=== PATIENT | female | born 1930 | race Caucasian/White ===

== ENCOUNTER 2018-02-07 10:04 | Observation (INO) ==
--- NOTE | 2018-02-07 10:17 | Emergency Department Note ---
ED Disposition Clinical Impression: Delirium, UTI (urinary tract infection), Delirium due to general medical condition, Dementia, Bacteriuria with pyuria, Weakness, UTI (urinary tract infection) with pyuria Disposition: Admitted as Observation Condition on Discharge: Good Referrals: Austin Rivera MD [Primary Care Provider] - - Critical Care Critical Care Time: No Attestation: On 02/07/18, the high probability of a clinically significant, sudden or life threatening deterioration of the following system(s) required my full and direct attention, intervention and personal management. The time I documented below is in addition to time spent performing reported procedures but includes the following listed in this critical care notation. Medical Decision Making - Medical Records Medical records reviewed: Yes: I reviewed the patient's medical records. - Rikki Inquiry Pt receiving controlled substance: No Vital Signs: 02/07/18 09:56 Pulse Rate [Right Brachial] 101 H Respiratory Rate 18 Blood Pressure [Right Arm] 147/89 Blood Pressure Mean [Right Arm] 108 Blood Pressure Source [Right Arm] Automatic Cuff 02 Sat by Pulse Oximetry 96 Oxygen Delivery Method Room Air - Lab Data Lab results reviewed: Yes: I reviewed the patient's lab results. Lab Results 02/07/18 10:20: WBC 15.9 H D, RBC 3.92 L, Hgb 11.6 L, Hct 37.7, MCV 96.1, MCH 29.6, MCHC 30.8 L, RDW 13.9, Plt Count 347, MPV 7.5, Neut % (Auto) 78.8, Lymph % (Auto) 15.9, Dawes % (Auto) 4.7, Eos % (Auto) 0.2, Baso % (Auto) 0.4, Neut # ( Auto) 12.5 H, Lymph # (Auto) 2.5, Dawes # (Auto) 0.7, Eos # (Auto) 0.0, Baso # ( Auto) 0.1, Total Counted 100, Neutrophils % (Manual) 76, Lymphocytes % (Manual) 11, Monocytes % (Manual) 12 H, Basophils % (Manual) 1.0, Platelet Estimate Normal, RBC Morphology Normal 02/07/18 10:20: Sodium 139, Potassium 3.9, Chloride 106, Carbon Dioxide 22, Anion Gap 14.9, BUN 22 H, Creatinine 1.38 H, Estimated Creat Clear 29, Estimated GFR 36 L, Est GFR ( Amer) 44 L, Glucose 136 H D, Calcium 9.9, Total Bilirubin 0.3, AST 14 L D, ALT 15, Alkaline Phosphatase 129 H, Total Creatine Kinase 19 L, CK-MB (CK-2) < 0.5, CK-MB (CK-2) Rel Index 2.6, Troponin I < 0.02, Total Protein 7.7, Albumin 3.2 L, Globulin 4.5 H, Albumin/Globulin Ratio 0.7 L 02/07/18 10:20: Lactic Acid 0.3 L 02/07/18 10:20: Urine Color Dark yellow, Urine Appearance Turbid, Urine pH 6.0, Ur Specific [place] 1.020, Urine Protein 3+, Urine Glucose (UA) Negative, Urine Ketones Negative, Urine Blood 3+, Urine Nitrate Positive, Urine Bilirubin Negative, Urine Urobilinogen 0.2, Ur Leukocyte Esterase 2+ A, Urine RBC 10-20, Urine WBC Tntc A, Ur Squamous Epith Cells Occasional, Urine Bacteria Trace Result diagrams: 02/07/18 10:20 02/07/18 10:20 Orders (Tests/Meds): ED MEDICATIONS Generic Name Dose Route Start Last Admin Trade Name Freq PRN Reason Stop Dose Admin Ceftriaxone Sodium 1 gm/ 50 mls @ 100 mls/hr 02/07/18 10:30 02/07/18 11:10 Sodium Chloride IV 02/21/18 10:29 100 mls/hr Q24H GISELA Administration Protocol Discontinued Medications Generic Name Dose Route Start Last Admin Trade Name Freq PRN Reason Stop Dose Admin Acetaminophen 650 mg 02/07/18 10:15 02/07/18 11:00 Acetaminophen 650mg Suppository RC 02/07/18 10:16 650 mg ONCE ONE Administration ORDERS Category Date Time Status Blood Culture Stat Micro 02/07/18 10:20 Received Urine Culture(cathed specimen) Routine Micro 02/07/18 10:20 Received - Radiology Data #1 Image(s): Chest Image Reviewed: Yes I discussed the image results w/the radiologist Preliminary Findings: Normal/NAD (prior CM, prior h hernia; neg pneumonia; neg acute per Dr. Bennett ) - CT Data CT Scan: Head Time Received: 11:[address] Reviewed: Yes: I discussed the CT results w/the radiologist Preliminary Findings: Abnormal Findings Narrative: states compared to yesterday CT now has some fluid in the R mastoid, questions possible mastoiditis; neg acute bleed; chronic atrophy; CXR neg acute per radiology - Physician Consults Physician Consulted: Dr. Gaming applications support lead for Dr. Rivera Time: 11:25 Reason -: Admission Comment/Response: Admit on Rocephin per d/w Dr. Gaming - Reevaluation(s) Time: 11:46 (Pt taking PO fluids, looks better hydrated, temperature has defervesced to 99.6 rectally, no acute neurological changes noted. ) Weakness HPI - General Chief complaint: Altered Mental Status Stated complaint: ams Time Seen by Provider: 02/07/18 10:12 Mode of Arrival: EMS Source of Information: EMS, Medical Record Limitations: Physical Limitations Description of Symptoms (Recalled from ER Triage Doc. by RN): presents with "worsening of symptoms" according to family from previous visit yesterday - History of Present Illness HPI Narrative: EMS brings in patient from home stating that she was in the ER yesterday and was diagnosed with UTI, and the personal care provider stated she seemed a little worse. Stated patient bedridden but can usually turn in the bed and seemed less active. Patient baseline contracted, not very mobile, has dementia. Family not yet at the bedside to provide further details. Unknown if antibiotic Rx filled yesterday for UTI as prescribed. - Related Data Home Medications Medication Instructions Recorded Confirmed Dorzolamide HCl [Trusopt] 10 ml OP BID 11/19/17 02/07/18 Escitalopram Oxalate [Lexapro] 5 mg PO DAILY 11/19/17 02/07/18 Ferrous Sulfate [Ferrous Sulfate 325 mg PO DAILY 11/19/17 02/07/18 325mg Tablet] Fluticasone Propionate [Flonase 1 spr NS BID 11/19/17 02/07/18 50mcg nasal spray 16gm] Furosemide [Furosemide 20mg Tab] 20 mg PO QODHS 11/19/17 02/07/18 Losartan/Hydrochlorothiazide 1 each PO DAILY 11/19/17 02/07/18 [Hyzaar 100-12.5 Tablet] Lovastatin 40 mg PO DAILY 11/19/17 02/07/18 Nitrofurantoin Monohyd/M-Cryst 100 mg PO DAILY 11/19/17 02/07/18 [Macrobid 100 mg Capsule] Omeprazole [Omeprazole 40mg 40 mg PO DAILY 11/19/17 02/07/18 Capsule] Pnv with Ca,No.72/Iron/FA [Preplus 1 each PO DAILY 11/19/17 02/07/18 Ca-Fe 27 mg-FA 1 mg Tb] Potassium Chloride [K-Tab ER 10 10 meq PO DAILY 11/19/17 02/07/18 mEq] Rivaroxaban [Xarelto 15mg tablet] 15 mg PO DAILY 11/19/17 02/07/18 Previous Rx's Medication Instructions Recorded Nitrofurantoin Monohyd/M-Cryst 100 mg PO BID 10 Days #20 cap 02/06/18 [Macrobid 100 mg Capsule] Allergies Allergy/AdvReac Type Severity Reaction Status Date / Time loratadine [From CLARITIN] Allergy Mild Verified 11/19/17 14:08 solifenacin [From VESICARE] Allergy Mild Verified 11/19/17 14:08 REDD INHIBITORS Allergy Mild Uncoded 10/21/17 14:27 [facility] History Medical History: Reports:: Deep Vein Thrombosis, Hypertension Denies:: Cancer, Diabetes Mellitus Type 1, Diabetes Mellitus Type 2, MRSA Other Medical History: Reports: Arthritis Laterality Cases: Left: Mastectomy Other Surgeries: Yes: Appendectomy, Cancer Surgery, Colonoscopy, Hysterectomy- Partial, Tubal Ligation, Other (Left Mastectomy, Adrenal gland bx, bladder bx, cystoscopy) Amputation: No Fractures: No - Social History Educational Level: Completed High School Smoking Status: Never smoker Alcohol Intake: never Occupational Status: retired Housing: house Household Members: spouse - Psychiatric History Expresses thoughts of harming self/others: None Suicide Plan Description: No Plan Family Hx:: No significant family history ROS Obtained: Yes All systems reviewed & no additional complaints Physical Exam - General General appearance: alert, in no apparent distress - Head Head exam: atraumatic, normocephalic, normal inspection - Eye Eye exam: Present: normal appearance, PERRL, EOMI - ENT ENT exam: Present: mucous membranes dry - Neck Neck exam: Present: normal inspection, full ROM, trachea midline. Absent: meningismus, lymphadenopathy - Chest Chest inspection: Present: normal inspection, symmetric chest wall rise. Absent : tenderness - Respiratory Respiratory exam: Present: normal lung sounds bilaterally. Absent: respiratory distress - Cardiovascular Cardiovascular exam: Present: regular rate, normal rhythm. Absent: JVD - Abdominal Exam Abdominal exam: Present: soft, normal bowel sounds. Absent: distention, tenderness, guarding - Back Exam Back exam: Present: full ROM - Neurological Exam Neurological exam: Present: alert, CN II-XII intact. 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 No drooling, no facial drooping. ) - Skin Skin exam: Present: warm, dry, intact, normal color, other (appears dehydrated today) - Lymphatic Lymphatic Findings: no adenopathy
[2018-02-07 10:44] LABS: Basophils # 0.1 K/mm3 (0-0.2); Basophils % 0.4 % (0.1-2.0); Eosinophils % 0.2 % (0.1-12.0); Hematocrit 37.7 % (37.0-47.0); Hemoglobin 11.6 g/dL (12.2-16.2); Lymphocytes # 2.5 K/mm3 (0.7-4.5); Lymphocytes % 15.9 K/mm3 (10-50); Mean Corpuscular HGB Conc 30.8 g/dL (31.8-35.4); Mean Corpuscular Hemoglobin 29.6 pg (27.0-31.2); Mean Corpuscular Volume 96.1 fl (81-99); Mean Platelet Volume 7.5 fl (7.4-10.4); Monocytes # 0.7 K/mm3 (0.1-1.0); Monocytes % 4.7 % (1.7-9.3); Neutrophils # 12.5 K/mm3 (1.8-7.8); Neutrophils % 78.8 % (37.0-80.0); Platelet Count 347 K/mm3 (142-424); Red Blood Count 3.92 M/mm3 (4.20-5.40); Red Cell Distribution Width 13.9 % (11.5-17.5); White Blood Count 15.9 K/mm3 (4.8-10.8)
[2018-02-07 11:15] LABS: Alanine Aminotransferase 15 U/L (12-78); Albumin Level 3.2 gm/dL (3.4-5.0); Albumin/Globulin Ratio 0.7 (1.1-1.8); Alkaline Phosphatase 129 U/L (46-116); Anion Gap 14.9 mEq/L (5-15); Aspartate Amino Transferase 14 U/L (15-37); Bilirubin,Total 0.3 mg/dL (0.2-1.0); Blood Urea Nitrogen 22 mg/dL (7-18); Calcium 9.9 mg/dL (8.5-10.1); Carbon Dioxide 22 mmol/L (21.0-32.0); Chloride 106 mmol/L (98-107); Creatine Kinase 19 U/L (26-192); Globulin 4.5 gm/dl (1.3-3.2); Glucose 136 mg/dL (74-106); Potassium 3.9 mmoL/L (3.5-5.1); Sodium 139 mmol/L (136-145); Total Protein,Serum 7.7 gm/dL (6.4-8.2)
[2018-02-07 11:29] LABS: Lymphocytes % 11 % (10-50); Monocytes % 12 % (2-9); Neutrophils % 76 % (42-76); RBC Morphology Normal; Total Cells Counted 100
--- NOTE | 2018-02-07 16:57 | History & Physical Report ---
*Admission Date: 02/07/18 *Chief complaint: Altered mental status, UTI *History of present illness: This 87-year-old white female is admitted with altered mental status and evidence of urinary tract infection. She was actually seen yesterday in the emergency room with concerns of left-sided weakness. She was discharged from the emergency room on Macrobid but she takes Macrobid chronically anyway. She returned to the emergency room today with decreased responsiveness and fever. Her urine is turbid with 3+ bacteria and positive nitrites. She is admitted for treatment of this. An additional concern is some evidence of possible air- fluid level in the right mastoid area. She has had no obvious ENT symptoms. She is subject to the urinary tract infections and episodic dehydration related to infection. She is quite debilitated at her best though she has been up and about recently. [facility] History Medical History: Reports:: Deep Vein Thrombosis, Hypertension Denies:: Cancer, Diabetes Mellitus Type 1, Diabetes Mellitus Type 2, MRSA Other Medical History: Reports: Arthritis Comment: In her office note is mentioned non-Hodgkin's lymphoma. The family does not seem to be very aware of this. She has a history of DVT in the right leg. She had a fractured right humerus. Laterality Cases: Left: Mastectomy, Right: Other (Fractured humerus) Other Surgeries: Yes: Appendectomy, Cancer Surgery, Colonoscopy, Hysterectomy- Partial, Tubal Ligation, Other (Left Mastectomy, Adrenal gland bx, bladder bx, cystoscopy) Amputation: No Fractures: Yes (Right humerus) - *Social History Educational Level: Completed High School Smoking Status: Never smoker Alcohol Intake: never Occupational Status: retired Housing: house Household Members: spouse - Psychiatric History Expresses thoughts of harming self/others: None Suicide Plan Description: No Plan *Family Hx:: No significant family history Comment: She lost a son at age 5 months. Review of Systems - Review of Systems Review of systems:: other (Obtained from family) - Constitutional Comments: She is chronically debilitated. - Eyes Comments: She wears glasses. - ENT Reports poor balance Comments: No real ENT symptoms - *Cardiovascular Denies chest pain, Denies chest pain with activity, Denies irregular heart rhythm, Denies shortness of breath when lying down - *Respiratory Denies chest congestion, Denies cough, Denies shortness of breath, Denies stridor, Denies wheezing - *Gastrointestinal Denies abdominal pain, Denies change in bowel habits, Denies difficulty swallowing, Denies vomiting blood, Denies vomiting - *Genitourinary Comments: History of recurrent UTIs - *Musculoskeletal Reports abnormal walking, Reports limited joint movement, Reports muscle weakness - Integumentary/Breasts Denies new lesions Comments: She had a left mastectomy in 1993 - *Neurologic Reports abnormal walking, Reports weakness Comments: She seemed to exhibit left-sided weakness yesterday. That seemed to improve. - Psychiatric Comments: Change in alertness. - Hematologic/Lymphatic Comments: Listed in her past medical history is non-Hodgkin's lymphoma, but the family seems to be unaware of this. She did have a DVT in the right leg in the past. She had a fracture of the right humerus in the past. Meds Home Medications Medication Instructions Recorded Confirmed Type Dorzolamide HCl [Trusopt] 10 ml OP BID 11/19/17 02/07/18 History Escitalopram Oxalate [Lexapro] 5 mg PO HS 11/19/17 02/07/18 History Ferrous Sulfate [Ferrous Sulfate 325 mg PO DAILY 11/19/17 02/07/18 History 325mg Tablet] Fluticasone Propionate [Flonase 1 spr NS BID 11/19/17 02/07/18 History 50mcg nasal spray 16gm] Furosemide [Furosemide 20mg Tab] 20 mg PO DIRECTED 11/19/17 02/07/18 History Losartan/Hydrochlorothiazide 1 each PO DAILY 11/19/17 02/07/18 History [Hyzaar 100-12.5 Tablet] Lovastatin 40 mg PO HS 11/19/17 02/07/18 History Nitrofurantoin Monohyd/M-Cryst 100 mg PO DAILY 11/19/17 02/07/18 History [Macrobid 100 mg Capsule] Omeprazole [Omeprazole 40mg 40 mg PO DAILY 11/19/17 02/07/18 History Capsule] Pnv with Ca,No.72/Iron/FA [Preplus 1 each PO DAILY 11/19/17 02/07/18 History Ca-Fe 27 mg-FA 1 mg Tb] Potassium Chloride [K-Tab ER 10 10 meq PO DAILY 11/19/17 02/07/18 History mEq] Rivaroxaban [Xarelto 15mg tablet] 15 mg PO HS 11/19/17 02/07/18 History Allergies Allergy/AdvReac Type Severity Reaction Status Date / Time loratadine [From CLARITIN] Allergy Mild Verified 11/19/17 14:08 solifenacin [From VESICARE] Allergy Mild Verified 11/19/17 14:08 REDD INHIBITORS Allergy Mild Uncoded 10/21/17 14:27 Exam Vital signs and Labs for Last 24 Hours: Temp Pulse Resp BP Pulse Ox 99.6 F 101 H 18 147/89 95 02/07/18 13:52 02/07/18 13:52 02/07/18 13:52 02/07/18 13:52 02/07/18 15:41 I & O for Last 24 hours: Intake & Output 02/05/18 02/06/18 02/07/18 02/08/18 11:59 11:59 11:59 11:59 Intake Total 240 / 240 Balance 240 / 240 H&P: Result - Labs Labs: Laboratory Tests 02/07/18 02/07/18 02/07/18 10:20 10:20 10:20 WBC 15.9 H D Hgb 11.6 L Hct 37.7 Potassium 3.9 BUN 22 H Creatinine 1.38 H Total Bilirubin 0.3 AST 14 L D ALT 15 Urine Appearance Turbid Urine Protein 3+ Urine Blood 3+ Urine Nitrate Positive Urine WBC Tntc A Urine Bacteria Trace Assessment and Plan (1) Bacteriuria with pyuria Current visit: Yes Status: Acute Category: Medical Code(s): N39.0 - Urinary tract infection, site not specified (2) Dementia Current visit: Yes Status: Acute Category: Medical Code(s): F03.90 - Unspecified dementia without behavioral disturbance (3) UTI (urinary tract infection) Current visit: Yes Status: Acute Category: Medical Code(s): N39.0 - Urinary tract infection, site not specified (4) Weakness Current visit: Yes Status: Acute Category: Medical Code(s): R53.1 - Weakness (5) Altered mental status Current visit: No Status: Acute Qualifiers: Altered mental status type: unspecified Qualified Code(s): R41.82 - Altered mental status, unspecified Category: Medical Code(s): R41.82 - Altered mental status, unspecified
[2018-02-08 06:01] LABS: Basophils % 0.4 % (0.1-2.0); Eosinophils # 0.1 K/mm3 (0.0-0.4); Eosinophils % 0.6 % (0.1-12.0); Hematocrit 36.7 % (37.0-47.0); Hemoglobin 11.1 g/dL (12.2-16.2); Lymphocytes # 3.4 K/mm3 (0.7-4.5); Lymphocytes % 30.1 K/mm3 (10-50); Mean Corpuscular HGB Conc 30.3 g/dL (31.8-35.4); Mean Corpuscular Hemoglobin 29.8 pg (27.0-31.2); Mean Corpuscular Volume 98.4 fl (81-99); Monocytes # 0.7 K/mm3 (0.1-1.0); Monocytes % 6.5 % (1.7-9.3); Neutrophils # 7.1 K/mm3 (1.8-7.8); Neutrophils % 62.4 % (37.0-80.0); Platelet Count 157 K/mm3 (142-424); Red Blood Count 3.73 M/mm3 (4.20-5.40); Red Cell Distribution Width 13.9 % (11.5-17.5); White Blood Count 11.4 K/mm3 (4.8-10.8)
[2018-02-08 07:58] LABS: Albumin Level 2.5 gm/dL (3.4-5.0); Albumin/Globulin Ratio 0.6 (1.1-1.8); Anion Gap 13.6 mEq/L (5-15); Bilirubin,Total 0.2 mg/dL (0.2-1.0); Calcium 9.5 mg/dL (8.5-10.1); Potassium 3.6 mmoL/L (3.5-5.1); Total Protein,Serum 6.5 gm/dL (6.4-8.2)
--- NOTE | 2018-02-08 08:37 | Progress Note ---
Internal Medicine - PN: Subj *Date: 02/08/18 *Time: 12:20 Interval history: ER record reviewed and patient examined. She has a quiet night and seemed to have rested well. She is alert and oriented to name only. Denies c/o pain or nausea. No headache. She was afebrile through the night and WBC is improved. Exam Vital signs and Labs for Last 24 Hours: Temp Pulse Resp BP Pulse Ox 98.4 F 70 16 147/70 97 02/08/18 08:00 02/08/18 08:00 02/08/18 08:00 02/08/18 08:00 02/08/18 08:00 Laboratory Results - last 24 hr 02/08/18 05:20: WBC 11.4 H D, RBC 3.73 L, Hgb 11.1 L, Hct 36.7 L, MCV 98.4, MCH 29.8, MCHC 30.3 L, RDW 13.9, Plt Count 157 D, MPV 8.0, Neut % (Auto) 62.4, Lymph % (Auto) 30.1, [place] % (Auto) 6.5, Eos % (Auto) 0.6, Baso % (Auto) 0.4, Neut # (Auto) 7.1, Lymph # (Auto) 3.4, [place] # (Auto) 0.7, Eos # (Auto) 0.1, Baso # (Auto) 0.0 02/08/18 07:10: Sodium 142, Potassium 3.6, Chloride 111 H, Carbon Dioxide 21, Anion Gap 13.6, BUN 21 H, Creatinine 1.14 H, Estimated Creat Clear 32, Estimated GFR 45 L, Est GFR ( Amer) 54 L D, Glucose 92 D, Calcium 9.5, Total Bilirubin 0.2, AST 14 L, ALT 11 L D, Alkaline Phosphatase 101, Total Protein 6.5, Albumin 2.5 L D, Globulin 4.0 H, Albumin/Globulin Ratio 0.6 L I & O for Last 24 hours: Intake & Output 02/05/18 02/06/18 02/07/18 02/08/18 11:59 11:59 11:59 11:59 Intake Total 2002 Output Total 1150 / 1150 Balance 853 / 853 - Constitutional Comments: sitting up in bed, alert and answers questions but is confused. - *Routine HEENT Exam ENT: Present: mucous membranes dry - *Routine Respiratory Exam Present: CTA bilaterally - *Routine Cardiovascular Exam Present: RRR - *Routine Abdominal Exam Present: soft, normoactive bowel sounds. Absent: tenderness, distended - *Routine Extremities Exam Absent: edema Assessment and Plan (1) UTI (urinary tract infection) Current visit: Yes Status: Acute Category: Medical Code(s): N39.0 - Urinary tract infection, site not specified (2) Altered mental status Current visit: No Status: Acute Qualifiers: Altered mental status type: unspecified Qualified Code(s): R41.82 - Altered mental status, unspecified Category: Medical Code(s): R41.82 - Altered mental status, unspecified (3) Dehydration Current visit: No Status: Acute Category: Medical Code(s): E86.0 - Dehydration (4) Dementia Current visit: Yes Status: Acute Category: Medical Code(s): F03.90 - Unspecified dementia without behavioral disturbance (5) Weakness Current visit: Yes Status: Acute Category: Medical Code(s): R53.1 - Weakness (6) Hypertension Current visit: No Status: Chronic Category: Medical Code(s): I10 - Essential (primary) hypertension (7) Hx of breast cancer Current visit: Yes Status: Acute Category: Medical Code(s): Z85.3 - Personal history of malignant neoplasm of breast (8) Hx of non-Hodgkin's lymphoma Current visit: Yes Status: Acute Category: Medical Code(s): Z85.72 - Personal history of non-Hodgkin lymphomas - Assessment and plan all Dx Assessment and Plan for all problems:: Continue IV fluid hydration and current antibiotics pending cultures. She has gradually become more debilitated at home to point her family is having difficulty caring for her even with assistance of sitters. May need to consider LTC placement
--- NOTE | 2018-02-08 14:09 | Pharmacy Consult Notes ---
[facility] Pharmacy VTE Monitoring - Patient Demographics Admission date: 02/07/18 Report Date: 02/08/18 Time: 14:09 Allergies/Adverse Reactions: Patient Allergies loratadine [From CLARITIN] Allergy (Mild, Verified 11/19/17 14:08) solifenacin [From VESICARE] Allergy (Mild, Verified 11/19/17 14:08) REDD INHIBITORS Allergy (Mild, Uncoded 10/21/17 14:27) Height: 1.7 m Weight: 58.598 kg Patient Problems: Current Active Problems UTI (urinary tract infection) (Acute) Weakness (Acute) Bacteriuria with pyuria (Acute) Delirium (Acute) Delirium due to general medical condition (Acute) Dementia (Acute) UTI (urinary tract infection) with pyuria (Acute) Hx of breast cancer (Acute) Hx of non-Hodgkin's lymphoma (Acute) - VTE Risk Labs: VTE Related Lab Results Hgb 11.1 g/dL (12.2-16.2) L 02/08/18 05:20 Hct 36.7 % (37.0-47.0) L 02/08/18 05:20 Plt Count 157 K/mm3 (142-424) D 02/08/18 05:20 BUN 21 mg/dL (7-18) H 02/08/18 07:10 Creatinine 1.14 mg/dL (0.55-1.02) H 02/08/18 07:10 Estimated Creat Clear 32 mL/min (0-300) 02/08/18 07:10 Was VTE Risk Assessment Performed: Yes - Prophylaxis VTE Prophylaxis Ordered?: Yes Types of VTE Prophylaxis: Pharmacological Pharmacologic Type: Other (XARELTO)
--- NOTE | 2018-02-09 08:09 | Progress Note ---
<Shante Peña - Last Filed: 02/09/18 08:06> Internal Medicine - PN: Subj *Date: 02/09/18 *Time: 08:06 Interval history: Patient indicates that she is comfortable. She denies chest pain and shortness of breath. She denies abdominal pain. Exam Vital signs and Labs for Last 24 Hours: Temp Pulse Resp BP Pulse Ox 98.8 F 77 16 140/77 98 02/09/18 07:25 02/09/18 07:25 02/09/18 07:25 02/09/18 07:25 02/09/18 07:25 I & O for Last 24 hours: Intake & Output 02/06/18 02/07/18 02/08/18 02/09/18 11:59 11:59 11:59 11:59 Intake Total 2002 720 / 720 Output Total 1150 / 1150 1200 / 1200 Balance 853 / 853 -480 / -480 Weight 129 lb 3 oz Microbiology Reports for the Last 24 Hours: Urine culture positive for Pseudomonas sensitive to Levaquin and cephalosporins. - Constitutional no acute distress Comments: Eating upright in bed being fed her breakfast. She thinks she is in the [facility]. - *Routine Respiratory Exam Present: CTA bilaterally (Anteriorly and posteriorly.) - *Routine Cardiovascular Exam Present: RRR - *Routine Abdominal Exam Present: soft, normoactive bowel sounds. Absent: tenderness, distended - *Routine Extremities Exam Absent: edema, calf tenderness - *Routine Neurological Exam Present: alert Disoriented. Pleasantly conversant. Assessment and Plan (1) UTI (urinary tract infection) Current visit: Yes Status: Acute Category: Medical Code(s): N39.0 - Urinary tract infection, site not specified (2) Altered mental status Current visit: No Status: Acute Qualifiers: Altered mental status type: unspecified Qualified Code(s): R41.82 - Altered mental status, unspecified Category: Medical Code(s): R41.82 - Altered mental status, unspecified (3) Dehydration Current visit: No Status: Acute Category: Medical Code(s): E86.0 - Dehydration (4) Dementia Current visit: Yes Status: Acute Category: Medical Code(s): F03.90 - Unspecified dementia without behavioral disturbance (5) Weakness Current visit: Yes Status: Acute Category: Medical Code(s): R53.1 - Weakness (6) Hypertension Current visit: No Status: Chronic Category: Medical Code(s): I10 - Essential (primary) hypertension (7) Hx of breast cancer Current visit: Yes Status: Acute Category: Medical Code(s): Z85.3 - Personal history of malignant neoplasm of breast (8) Hx of non-Hodgkin's lymphoma Current visit: Yes Status: Acute Category: Medical Code(s): Z85.72 - Personal history of non-Hodgkin lymphomas - Assessment and plan all Dx Assessment and Plan for all problems:: Continue with current antibiotics. Continue with IV fluids for now. Out of bed to chair. <Austin Rivera - Last Filed: 02/10/18 07:58> Internal Medicine - PN: Subj *Date: 02/10/18 *Time: 07:57 Exam Vital signs and Labs for Last 24 Hours: Temp Pulse Resp BP Pulse Ox 100.4 F H 96 H 20 153/93 97 02/10/18 07:34 02/10/18 07:34 02/10/18 07:34 02/10/18 07:34 02/10/18 07:34 Laboratory Results - last 24 hr 02/10/18 07:05: WBC 13.4 H, RBC 3.50 L, Hgb 10.3 L, Hct 33.3 L, MCV 95.2, MCH 29.4, MCHC 30.9 L, RDW 14.0, Plt Count 306 D, MPV 7.1 L, Neut % (Auto) 72.6, Lymph % (Auto) 22.2, [place] % (Auto) 3.8, Eos % (Auto) 1.2, Baso % (Auto) 0.3, Neut # (Auto) 9.7 H, Lymph # (Auto) 3.0, [place] # (Auto) 0.5, Eos # (Auto) 0.2, Baso # (Auto) 0.0 02/10/18 07:05: Sodium 142, Potassium 3.7, Chloride 111 H, Carbon Dioxide 24, Anion Gap 10.7, BUN 16, Creatinine 1.03 H, Estimated Creat Clear 35, Estimated GFR 51 L, Est GFR ( Amer) 61, Glucose 119 H I & O for Last 24 hours: Intake & Output 04/0702/08/18 02/09/18 02/10/18 11:59 11:59 11:59 11:59 Intake Total 2002 1490 / 1490 2151 / 2151 Output Total 1150 / 1150 3600 / 3600 2700 / 2700 Balance 853 / 853 -2110 / -2110 -549 / -549 Weight 129 lb 3 oz 129 lb 2.984 oz Assessment and Plan (1) UTI (urinary tract infection) Current visit: Yes Status: Acute Category: Medical Code(s): N39.0 - Urinary tract infection, site not specified (2) Altered mental status Current visit: No Status: Acute Qualifiers: Altered mental status type: unspecified Qualified Code(s): R41.82 - Altered mental status, unspecified Category: Medical Code(s): R41.82 - Altered mental status, unspecified (3) Dehydration Current visit: No Status: Acute Category: Medical Code(s): E86.0 - Dehydration (4) Dementia Current visit: Yes Status: Acute Category: Medical Code(s): F03.90 - Unspecified dementia without behavioral disturbance (5) Weakness Current visit: Yes Status: Acute Category: Medical Code(s): R53.1 - Weakness (6) Hypertension Current visit: No Status: Chronic Category: Medical Code(s): I10 - Essential (primary) hypertension (7) Hx of breast cancer Current visit: Yes Status: Acute Category: Medical Code(s): Z85.3 - Personal history of malignant neoplasm of breast (8) Hx of non-Hodgkin's lymphoma Current visit: Yes Status: Acute Category: Medical Code(s): Z85.72 - Personal history of non-Hodgkin lymphomas - Assessment and plan all Dx Assessment and Plan for all problems:: Patient seen and examined. More alert and conversant but still confused. Awaiting cultures. Will get PT eval.
[2018-02-10 07:13] LABS: Basophils % 0.3 % (0.1-2.0); Eosinophils # 0.2 K/mm3 (0.0-0.4); Eosinophils % 1.2 % (0.1-12.0); Hematocrit 33.3 % (37.0-47.0); Hemoglobin 10.3 g/dL (12.2-16.2); Lymphocytes % 22.2 K/mm3 (10-50); Mean Corpuscular HGB Conc 30.9 g/dL (31.8-35.4); Mean Corpuscular Hemoglobin 29.4 pg (27.0-31.2); Mean Corpuscular Volume 95.2 fl (81-99); Mean Platelet Volume 7.1 fl (7.4-10.4); Monocytes # 0.5 K/mm3 (0.1-1.0); Monocytes % 3.8 % (1.7-9.3); Neutrophils # 9.7 K/mm3 (1.8-7.8); Neutrophils % 72.6 % (37.0-80.0); Platelet Count 306 K/mm3 (142-424); White Blood Count 13.4 K/mm3 (4.8-10.8)
[2018-02-10 07:23] LABS: Anion Gap 10.7 mEq/L (5-15); Potassium 3.7 mmoL/L (3.5-5.1)
--- NOTE | 2018-02-10 08:03 | Progress Note ---
<Shante Peña - Last Filed: 02/10/18 08:29> Internal Medicine - PN: Subj *Date: 02/10/18 *Time: 08:29 Interval history: Patient indicates that her bladder hurts. She thinks she is at her son's house. Physical therapy note reviewed. Patient requires maximum assist with all activity. Patient with a temperature of 100.4 this morning. White blood cell count has increased. Exam Vital signs and Labs for Last 24 Hours: Temp Pulse Resp BP Pulse Ox 100.4 F H 96 H 20 153/93 97 02/10/18 07:34 02/10/18 07:34 02/10/18 07:34 02/10/18 07:34 02/10/18 07:34 Laboratory Results - last 24 hr 02/10/18 07:05: WBC 13.4 H, RBC 3.50 L, Hgb 10.3 L, Hct 33.3 L, MCV 95.2, MCH 29.4, MCHC 30.9 L, RDW 14.0, Plt Count 306 D, MPV 7.1 L, Neut % (Auto) 72.6, Lymph % (Auto) 22.2, [place] % (Auto) 3.8, Eos % (Auto) 1.2, Baso % (Auto) 0.3, Neut # (Auto) 9.7 H, Lymph # (Auto) 3.0, [place] # (Auto) 0.5, Eos # (Auto) 0.2, Baso # (Auto) 0.0 02/10/18 07:05: Sodium 142, Potassium 3.7, Chloride 111 H, Carbon Dioxide 24, Anion Gap 10.7, BUN 16, Creatinine 1.03 H, Estimated Creat Clear 35, Estimated GFR 51 L, Est GFR ( Amer) 61, Glucose 119 H I & O for Last 24 hours: Intake & Output 02/07/18 02/08/18 02/09/18 02/10/18 11:59 11:59 11:59 11:59 Intake Total 2002 1490 / 1490 2151 / 2151 Output Total 1150 / 1150 3600 / 3600 2700 / 2700 Balance 853 / 853 -2110 / -2110 -549 / -549 Weight 129 lb 3 oz 129 lb 2.984 oz - Constitutional no acute distress Comments: Discomfort with assist and turning and unable to sit up in the bed today due to discomfort. - *Routine Respiratory Exam Present: CTA bilaterally - *Routine Cardiovascular Exam Present: RRR - *Routine Abdominal Exam Present: soft, normoactive bowel sounds. Absent: tenderness, distended - *Routine Extremities Exam Absent: edema - *Routine Neurological Exam Present: alert When awake speech was easily understood. She thinks she is at her son's house. Left facial droop noted. Assessment and Plan (1) UTI (urinary tract infection) Current visit: Yes Status: Acute Category: Medical Code(s): N39.0 - Urinary tract infection, site not specified (2) Altered mental status Current visit: No Status: Acute Qualifiers: Altered mental status type: unspecified Qualified Code(s): R41.82 - Altered mental status, unspecified Category: Medical Code(s): R41.82 - Altered mental status, unspecified (3) Dehydration Current visit: No Status: Acute Category: Medical Code(s): E86.0 - Dehydration (4) Dementia Current visit: Yes Status: Acute Category: Medical Code(s): F03.90 - Unspecified dementia without behavioral disturbance (5) Weakness Current visit: Yes Status: Acute Category: Medical Code(s): R53.1 - Weakness (6) Hypertension Current visit: No Status: Chronic Category: Medical Code(s): I10 - Essential (primary) hypertension (7) Hx of breast cancer Current visit: Yes Status: Acute Category: Medical Code(s): Z85.3 - Personal history of malignant neoplasm of breast (8) Hx of non-Hodgkin's lymphoma Current visit: Yes Status: Acute Category: Medical Code(s): Z85.72 - Personal history of non-Hodgkin lymphomas - Assessment and plan all Dx Assessment and Plan for all problems:: CT of head today <Austin Rivera - Last Filed: 02/10/18 18:23> Internal Medicine - PN: Subj *Date: 02/10/18 *Time: 18:21 Exam Vital signs and Labs for Last 24 Hours: Temp Pulse Resp BP Pulse Ox 98.0 F 68 20 149/85 96 02/10/18 15:22 02/10/18 15:22 02/10/18 15:22 02/10/18 15:22 02/10/18 15:22 Laboratory Results - last 24 hr 02/10/18 07:05: WBC 13.4 H, RBC 3.50 L, Hgb 10.3 L, Hct 33.3 L, MCV 95.2, MCH 29.4, MCHC 30.9 L, RDW 14.0, Plt Count 306 D, MPV 7.1 L, Neut % (Auto) 72.6, Lymph % (Auto) 22.2, [place] % (Auto) 3.8, Eos % (Auto) 1.2, Baso % (Auto) 0.3, Neut # (Auto) 9.7 H, Lymph # (Auto) 3.0, [place] # (Auto) 0.5, Eos # (Auto) 0.2, Baso # (Auto) 0.0 02/10/18 07:05: Sodium 142, Potassium 3.7, Chloride 111 H, Carbon Dioxide 24, Anion Gap 10.7, BUN 16, Creatinine 1.03 H, Estimated Creat Clear 35, Estimated GFR 51 L, Est GFR ( Amer) 61, Glucose 119 H I & O for Last 24 hours: Intake & Output 02/08/18 02/09/18 02/10/18 02/11/18 11:59 11:59 11:59 11:59 Intake Total 2002 1490 / 1490 2201 / 2201 480 / 480 Output Total 1150 / 1150 3600 / 3600 3400 / 3400 1000 / 1000 Balance 853 / 853 -2110 / -2110 -1199 / -1199 -520 / -520 Weight 129 lb 3 oz 129 lb 2.984 oz Assessment and Plan (1) UTI (urinary tract infection) Current visit: Yes Status: Acute Category: Medical Code(s): N39.0 - Urinary tract infection, site not specified (2) Altered mental status Current visit: No Status: Acute Qualifiers: Altered mental status type: unspecified Qualified Code(s): R41.82 - Altered mental status, unspecified Category: Medical Code(s): R41.82 - Altered mental status, unspecified (3) Dehydration Current visit: No Status: Acute Category: Medical Code(s): E86.0 - Dehydration (4) Dementia Current visit: Yes Status: Acute Category: Medical Code(s): F03.90 - Unspecified dementia without behavioral disturbance (5) Weakness Current visit: Yes Status: Acute Category: Medical Code(s): R53.1 - Weakness (6) Hypertension Current visit: No Status: Chronic Category: Medical Code(s): I10 - Essential (primary) hypertension (7) Hx of breast cancer Current visit: Yes Status: Acute Category: Medical Code(s): Z85.3 - Personal history of malignant neoplasm of breast (8) Hx of non-Hodgkin's lymphoma Current visit: Yes Status: Acute Category: Medical Code(s): Z85.72 - Personal history of non-Hodgkin lymphomas - Assessment and plan all Dx Assessment and Plan for all problems:: She is not as alert today. More confused. Question if she is able to focus with her eyes. Will obtain repeat head CT with contrast today. Continue current antibiotics. Blood cultures pending.
--- NOTE | 2018-02-11 07:55 | Progress Note ---
<Katie Melara - Last Filed: 02/11/18 07:52> Internal Medicine - PN: Subj *Date: 02/11/18 *Time: 07:52 Interval history: Patient is confused this morning but is able to answer some questions. She states she is in no pain. She does not feel well. She states she is very tired and does not feel like eating. Exam Vital signs and Labs for Last 24 Hours: Temp Pulse Resp BP Pulse Ox 97.8 F 56 L 18 164/57 95 02/11/18 07:35 02/11/18 07:35 02/11/18 07:35 02/11/18 07:35 02/11/18 07:35 I & O for Last 24 hours: Intake & Output 02/08/18 02/09/18 02/10/18 02/11/18 11:59 11:59 11:59 11:59 Intake Total 2002 1490 / 1490 2201 / 2201 3657 / 3657 Output Total 1150 / 1150 3600 / 3600 3400 / 3400 3350 / 3350 Balance 853 / 853 -2110 / -2110 -1199 / -1199 307 / 307 Weight 129 lb 3 oz 129 lb 2.984 oz Radiology Reports for the Last 24 Hours: Head CT - nothing acute, sinus disease - Constitutional no acute distress (fatigued and slightly confused) - *Routine Respiratory Exam Present: CTA bilaterally - *Routine Cardiovascular Exam Present: RRR - *Routine Abdominal Exam Present: soft, normoactive bowel sounds. Absent: tenderness - *Routine Extremities Exam Absent: edema Assessment and Plan (1) Pseudomonas urinary tract infection Current visit: Yes Status: Acute Category: Medical Code(s): N39.0 - Urinary tract infection, site not specified; B96.5 - Pseudomonas (aeruginosa) ( mallei) (pseudomallei) as the cause of diseases classified elsewhere (2) Altered mental status Current visit: No Status: Acute Qualifiers: Altered mental status type: unspecified Qualified Code(s): R41.82 - Altered mental status, unspecified Category: Medical Code(s): R41.82 - Altered mental status, unspecified (3) Dehydration Current visit: No Status: Acute Category: Medical Code(s): E86.0 - Dehydration (4) Dementia Current visit: Yes Status: Acute Category: Medical Code(s): F03.90 - Unspecified dementia without behavioral disturbance (5) Weakness Current visit: Yes Status: Acute Category: Medical Code(s): R53.1 - Weakness (6) Hypertension Current visit: No Status: Chronic Category: Medical Code(s): I10 - Essential (primary) hypertension (7) Hx of breast cancer Current visit: Yes Status: Acute Category: Medical Code(s): Z85.3 - Personal history of malignant neoplasm of breast (8) Hx of non-Hodgkin's lymphoma Current visit: Yes Status: Acute Category: Medical Code(s): Z85.72 - Personal history of non-Hodgkin lymphomas - Assessment and plan all Dx Assessment and Plan for all problems:: Urine culture is positive for pseudomonas aeruginosa. It is sensitive to both Levaquin and cefepime. Will continue antibiotics for urinary tract infection. Will get labs for tomorrow. <Austin Rivera - Last Filed: 02/11/18 10:17> Internal Medicine - PN: Subj *Date: 02/11/18 *Time: 09:59 Exam Vital signs and Labs for Last 24 Hours: Temp Pulse Resp BP Pulse Ox 97.8 F 56 L 18 164/57 95 02/11/18 07:35 02/11/18 07:35 02/11/18 07:35 02/11/18 07:35 02/11/18 07:35 Laboratory Results - last 24 hr 02/11/18 08:50: WBC 10.6, RBC 3.51 L, Hgb 10.0 L, Hct 33.7 L, MCV 96.1, MCH 28.5 , MCHC 29.6 L, RDW 14.0, Plt Count 313, MPV 6.9 L, Neut % (Auto) 68.1, Lymph % ( Auto) 24.9, [place] % (Auto) 4.8, Eos % (Auto) 1.9, Baso % (Auto) 0.3, Neut # (Auto ) 7.2, Lymph # (Auto) 2.6, [place] # (Auto) 0.5, Eos # (Auto) 0.2, Baso # (Auto) 0.0 I & O for Last 24 hours: Intake & Output 04/08/18 04/09/18 04/10/18 04/11/18 11:59 11:59 11:59 11:59 Intake Total 2002 1490 / 1490 2201 / 2201 3657 / 3657 Output Total 1150 / 1150 3600 / 3600 3400 / 3400 3350 / 3350 Balance 853 / 853 -2110 / -2110 -1199 / -1199 307 / 307 Weight 129 lb 3 oz 129 lb 2.984 oz Assessment and Plan (1) Pseudomonas urinary tract infection Current visit: Yes Status: Acute Category: Medical Code(s): N39.0 - Urinary tract infection, site not specified; B96.5 - Pseudomonas (aeruginosa) ( mallei) (pseudomallei) as the cause of diseases classified elsewhere (2) Altered mental status Current visit: No Status: Acute Qualifiers: Altered mental status type: unspecified Qualified Code(s): R41.82 - Altered mental status, unspecified Category: Medical Code(s): R41.82 - Altered mental status, unspecified (3) Dehydration Current visit: No Status: Acute Category: Medical Code(s): E86.0 - Dehydration (4) Dementia Current visit: Yes Status: Acute Category: Medical Code(s): F03.90 - Unspecified dementia without behavioral disturbance (5) Weakness Current visit: Yes Status: Acute Category: Medical Code(s): R53.1 - Weakness (6) Hypertension Current visit: No Status: Chronic Category: Medical Code(s): I10 - Essential (primary) hypertension (7) Hx of breast cancer Current visit: Yes Status: Acute Category: Medical Code(s): Z85.3 - Personal history of malignant neoplasm of breast (8) Hx of non-Hodgkin's lymphoma Current visit: Yes Status: Acute Category: Medical Code(s): Z85.72 - Personal history of non-Hodgkin lymphomas - Assessment and plan all Dx Assessment and Plan for all problems:: Patient seen and examined. She is resting on her side with eyes closed. She arouses easily but remains confused and seems to have difficulty making eye contact. Family at bedside. Explained that she needs a total of 10 days of double coverege IV antibiotics for her Pseudomonas infection and will need SNF placement. I am told she has not met criteria for acute admission despite the fact she has had fever, increased WBC and worsening of her mental status and physical abilities. Prior to her admission, she was interacting with family, although with episodes of confusion, and was mobile with minimal assistance at home. Clearly this has all changed and likely related to her current infection. Repeat CT of head with contrast yesterday ruled out a CVA. Her condition has deteriorated to the point her family can not care for her at home as they were prior to her acute illness. It seems incomprehensible to the family that the acuity of her symptoms does not meet Medicare guidelines for a qualifying acute care admission and I agree. Family met with rep from [facility] yesterday but cost is a concern and they would like to speak with rep from [facility] also. This will be arranged by Care Management. If family is agreeable to placement in one of these facilities , she is stable for discharge today. We will attempt physical therapy at the nursing facility but unless she has a dramatic response to her antibiotic treatment, I anticipate a steady downhill course as she just seems to have lost the will to live.
[2018-02-11 09:00] LABS: Basophils % 0.3 % (0.1-2.0); Eosinophils # 0.2 K/mm3 (0.0-0.4); Eosinophils % 1.9 % (0.1-12.0); Hematocrit 33.7 % (37.0-47.0); Lymphocytes # 2.6 K/mm3 (0.7-4.5); Lymphocytes % 24.9 K/mm3 (10-50); Mean Corpuscular HGB Conc 29.6 g/dL (31.8-35.4); Mean Corpuscular Hemoglobin 28.5 pg (27.0-31.2); Mean Corpuscular Volume 96.1 fl (81-99); Mean Platelet Volume 6.9 fl (7.4-10.4); Monocytes # 0.5 K/mm3 (0.1-1.0); Monocytes % 4.8 % (1.7-9.3); Neutrophils # 7.2 K/mm3 (1.8-7.8); Neutrophils % 68.1 % (37.0-80.0); Platelet Count 313 K/mm3 (142-424); Red Blood Count 3.51 M/mm3 (4.20-5.40); White Blood Count 10.6 K/mm3 (4.8-10.8)
--- NOTE | 2018-02-11 11:28 | Progress Note ---
Internal Medicine - PN: Subj *Date: 02/11/18 *Time: 11:27 Exam Vital signs and Labs for Last 24 Hours: Temp Pulse Resp BP Pulse Ox 97.8 F 56 L 18 164/57 95 02/11/18 07:35 02/11/18 07:35 02/11/18 07:35 02/11/18 07:35 02/11/18 07:35 Laboratory Results - last 24 hr 02/11/18 08:50: WBC 10.6, RBC 3.51 L, Hgb 10.0 L, Hct 33.7 L, MCV 96.1, MCH 28.5 , MCHC 29.6 L, RDW 14.0, Plt Count 313, MPV 6.9 L, Neut % (Auto) 68.1, Lymph % ( Auto) 24.9, [place] % (Auto) 4.8, Eos % (Auto) 1.9, Baso % (Auto) 0.3, Neut # (Auto ) 7.2, Lymph # (Auto) 2.6, [place] # (Auto) 0.5, Eos # (Auto) 0.2, Baso # (Auto) 0.0 I & O for Last 24 hours: Intake & Output 02/08/18 02/09/18 02/10/18 02/11/18 23:59 23:59 23:59 23:59 Intake Total 2136 / 2136 1250 / 1250 3849 / 3849 1479 / 1479 Output Total 1800 / 1800 4000 / 4000 2800 / 2800 2350 / 2350 Balance 336 / 336 -2750 / -2750 1049 / 1049 -871 / -871 Weight 58.598 kg 58.598 kg Assessment and Plan (1) Pseudomonas urinary tract infection Current visit: Yes Status: Acute Category: Medical Code(s): N39.0 - Urinary tract infection, site not specified; B96.5 - Pseudomonas (aeruginosa) ( mallei) (pseudomallei) as the cause of diseases classified elsewhere (2) Altered mental status Current visit: No Status: Acute Qualifiers: Altered mental status type: unspecified Qualified Code(s): R41.82 - Altered mental status, unspecified Category: Medical Code(s): R41.82 - Altered mental status, unspecified (3) Dehydration Current visit: No Status: Acute Category: Medical Code(s): E86.0 - Dehydration (4) Dementia Current visit: Yes Status: Acute Category: Medical Code(s): F03.90 - Unspecified dementia without behavioral disturbance (5) Weakness Current visit: Yes Status: Acute Category: Medical Code(s): R53.1 - Weakness (6) Hypertension Current visit: No Status: Chronic Category: Medical Code(s): I10 - Essential (primary) hypertension (7) Hx of breast cancer Current visit: Yes Status: Acute Category: Medical Code(s): Z85.3 - Personal history of malignant neoplasm of breast (8) Hx of non-Hodgkin's lymphoma Current visit: Yes Status: Acute Category: Medical Code(s): Z85.72 - Personal history of non-Hodgkin lymphomas The patient's infection will respond to the chosen ABx?: Yes Is the patient receiving the right drug, dose, and route?: Yes Could a more targeted ABx be ordered?: No (URINE CULTURE-P. AERUGINOSA, ON LEVAQUIN AND CEFEPIME)
[2018-02-12 07:33] LABS: Basophils # 0.1 K/mm3 (0-0.2); Basophils % 0.5 % (0.1-2.0); Eosinophils # 0.3 K/mm3 (0.0-0.4); Eosinophils % 2.2 % (0.1-12.0); Hematocrit 32.3 % (37.0-47.0); Lymphocytes # 3.5 K/mm3 (0.7-4.5); Lymphocytes % 29.9 K/mm3 (10-50); Mean Corpuscular HGB Conc 30.9 g/dL (31.8-35.4); Mean Corpuscular Hemoglobin 29.2 pg (27.0-31.2); Mean Corpuscular Volume 94.2 fl (81-99); Mean Platelet Volume 7.1 fl (7.4-10.4); Monocytes # 0.6 K/mm3 (0.1-1.0); Monocytes % 5.2 % (1.7-9.3); Neutrophils # 7.2 K/mm3 (1.8-7.8); Neutrophils % 62.2 % (37.0-80.0); Platelet Count 308 K/mm3 (142-424); Red Blood Count 3.43 M/mm3 (4.20-5.40); Red Cell Distribution Width 14.3 % (11.5-17.5); White Blood Count 11.6 K/mm3 (4.8-10.8)
[2018-02-12 07:43] LABS: Albumin Level 2.4 gm/dL (3.4-5.0); Albumin/Globulin Ratio 0.6 (1.1-1.8); Anion Gap 13.5 mEq/L (5-15); Bilirubin,Total 0.2 mg/dL (0.2-1.0); Calcium 8.7 mg/dL (8.5-10.1); Globulin 4.1 gm/dl (1.3-3.2); Potassium 3.5 mmoL/L (3.5-5.1); Total Protein,Serum 6.5 gm/dL (6.4-8.2)
--- NOTE | 2018-02-12 08:04 | Progress Note ---
<Katie Melara - Last Filed: 02/12/18 08:02> Internal Medicine - PN: Subj *Date: 02/12/18 *Time: 08:02 Interval history: The patient is not as alert today. Yesterday she was able to talk, answer questions, eat, and work with therapy. This morning she just stares and does not answer any questions. Her hands are balled into fists and she does not follow commands. Exam Vital signs and Labs for Last 24 Hours: Temp Pulse Resp BP Pulse Ox 99.3 F 78 20 152/97 97 02/12/18 04:00 02/12/18 04:00 02/12/18 04:00 02/12/18 04:00 02/12/18 04:00 Laboratory Results - last 24 hr 02/11/18 08:50: WBC 10.6, RBC 3.51 L, Hgb 10.0 L, Hct 33.7 L, MCV 96.1, MCH 28.5 , MCHC 29.6 L, RDW 14.0, Plt Count 313, MPV 6.9 L, Neut % (Auto) 68.1, Lymph % ( Auto) 24.9, [place] % (Auto) 4.8, Eos % (Auto) 1.9, Baso % (Auto) 0.3, Neut # (Auto ) 7.2, Lymph # (Auto) 2.6, [place] # (Auto) 0.5, Eos # (Auto) 0.2, Baso # (Auto) 0.0 02/12/18 06:48: WBC 11.6 H, RBC 3.43 L, Hgb 10.0 L, Hct 32.3 L, MCV 94.2, MCH 29.2, MCHC 30.9 L, RDW 14.3, Plt Count 308, MPV 7.1 L, Neut % (Auto) 62.2, Lymph % (Auto) 29.9, [place] % (Auto) 5.2, Eos % (Auto) 2.2, Baso % (Auto) 0.5, Neut # (Auto) 7.2, Lymph # (Auto) 3.5, [place] # (Auto) 0.6, Eos # (Auto) 0.3, Baso # (Auto) 0.1 02/12/18 06:48: Sodium 143, Potassium 3.5, Chloride 111 H, Carbon Dioxide 22, Anion Gap 13.5, BUN 14, Creatinine 0.98, Estimated Creat Clear 36, Estimated GFR 54 L, Est GFR ( Amer) 65, Glucose 96, Calcium 8.7, Total Bilirubin 0.2, AST 20, ALT 13, Alkaline Phosphatase 89, Total Protein 6.5, Albumin 2.4 L, Globulin 4.1 H, Albumin/Globulin Ratio 0.6 L I & O for Last 24 hours: Intake & Output 02/09/18 02/10/18 02/11/18 02/12/18 11:59 11:59 11:59 11:59 Intake Total 1490 / 1490 2201 / 2201 3707 / 3707 3246 / 3246 Output Total 3600 / 3600 3400 / 3400 3350 / 3350 2901 / 2901 Balance -2110 / -2110 -1199 / -1199 357 / 357 345 / 345 Weight 129 lb 3 oz 129 lb 2.984 oz - Constitutional no acute distress - *Routine Respiratory Exam Present: CTA bilaterally - *Routine Cardiovascular Exam Present: RRR - *Routine Abdominal Exam Present: soft, normoactive bowel sounds. Absent: tenderness - *Routine Extremities Exam Absent: edema Assessment and Plan (1) Pseudomonas urinary tract infection Status: Acute Category: Medical Code(s): N39.0 - Urinary tract infection, site not specified; B96.5 - Pseudomonas (aeruginosa) (mallei) (pseudomallei) as the cause of diseases classified elsewhere (2) Altered mental status Status: Acute Qualifiers: Altered mental status type: unspecified Qualified Code(s): R41.82 - Altered mental status, unspecified Category: Medical Code(s): R41.82 - Altered mental status, unspecified (3) Dehydration Status: Acute Category: Medical Code(s): E86.0 - Dehydration (4) Dementia Status: Acute Category: Medical Code(s): F03.90 - Unspecified dementia without behavioral disturbance (5) Weakness Status: Acute Category: Medical Code(s): R53.1 - Weakness (6) Hypertension Status: Chronic Category: Medical Code(s): I10 - Essential (primary) hypertension (7) Hx of breast cancer Status: Acute Category: Medical Code(s): Z85.3 - Personal history of malignant neoplasm of breast (8) Hx of non-Hodgkin's lymphoma Status: Acute Category: Medical Code(s): Z85.72 - Personal history of non- Hodgkin lymphomas - Assessment and plan all Dx Assessment and Plan for all problems:: Patient is not is alert and responsive today. Previous CT did not show a stroke. Will discuss further care with Dr. Rivera. <Austin Rivera - Last Filed: 02/13/18 08:56> Internal Medicine - PN: Subj *Date: 02/13/18 *Time: 08:53 Exam Vital signs and Labs for Last 24 Hours: Temp Pulse Resp BP Pulse Ox 97.9 F 68 18 108/78 98 02/12/18 08:00 02/12/18 08:00 02/12/18 08:00 02/12/18 08:00 02/12/18 08:00 I & O for Last 24 hours: Intake & Output 02/10/18 02/11/18 02/12/18 02/13/18 11:59 11:59 11:59 11:59 Intake Total 2201 / 2201 3707 / 3707 3326 / 3326 Output Total 3400 / 3400 3350 / 3350 2901 / 2901 900 / 900 Balance -1199 / -1199 357 / 357 425 / 425 -900 / -900 Weight 129 lb 2.984 oz Assessment and Plan (1) Pseudomonas urinary tract infection Status: Acute Category: Medical Code(s): N39.0 - Urinary tract infection, site not specified; B96.5 - Pseudomonas (aeruginosa) (mallei) (pseudomallei) as the cause of diseases classified elsewhere (2) Altered mental status Status: Acute Qualifiers: Altered mental status type: unspecified Qualified Code(s): R41.82 - Altered mental status, unspecified Category: Medical Code(s): R41.82 - Altered mental status, unspecified (3) Dehydration Status: Acute Category: Medical Code(s): E86.0 - Dehydration (4) Dementia Status: Acute Category: Medical Code(s): F03.90 - Unspecified dementia without behavioral disturbance (5) Weakness Status: Acute Category: Medical Code(s): R53.1 - Weakness (6) Hypertension Status: Chronic Category: Medical Code(s): I10 - Essential (primary) hypertension (7) Hx of breast cancer Status: Acute Category: Medical Code(s): Z85.3 - Personal history of malignant neoplasm of breast (8) Hx of non-Hodgkin's lymphoma Status: Acute Category: Medical Code(s): Z85.72 - Personal history of non- Hodgkin lymphomas - Assessment and plan all Dx Assessment and Plan for all problems:: She is awake and fairly alert but nonverbal. No apparent pain. Afebrile for past 24 hours. Family has decidede on [facility] and patient will be discharged there today for another week of double antibiotic treatment with PT/ OT.
--- NOTE | 2018-02-12 11:58 | Discharge Summary ---
General - General Admission date: 02/07/18 Discharge date: 02/12/18 HPI HPI: This 87-year-old white female is admitted with altered mental status and evidence of urinary tract infection. She was actually seen yesterday in the emergency room with concerns of left-sided weakness. She was discharged from the emergency room on Macrobid but she takes Macrobid chronically anyway. She returned to the emergency room today with decreased responsiveness and fever. Her urine is turbid with 3+ bacteria and positive nitrites. She is admitted for treatment of this. An additional concern is some evidence of possible air- fluid level in the right mastoid area. She has had no obvious ENT symptoms. She is subject to the urinary tract infections and episodic dehydration related to infection. She is quite debilitated at her best though she has been up and about recently. Hospital Course Hospital Course: SHe was admitted and empirically started on IV Rocephin and Levaquin peinding cultures. Urine culture eventually grew Pseudomonas which was resistant to Rocephin. At this point, Cefepime was added to her regimen and the Levaquin was continued. Her WBC initially improved then on day 3 she spiked a low grade fever and her WBC went back up. Her mental status has waxed and waned but has never been back to her baseline. A CT scan of her head was repeated with contrast but continued to show nothing acute. A PT eval noted that she required maximum assistance and skilled care rehab was recommended. Options were presented to the family who finally decided to tranfer her to [facility] for continued antibiotics with double coverage to include IV Cefepime and PO Levaquin. Financial constraints are a concern for the family and ultimately there wish is to take her home. SHe will need to get much stronger physically before they will be able to manage her at home. Thus far she has not responded to treatment of this UTI as quickly as she has on past admissions. Unless her mental status improves greatly, I'm not sure will be able to cooperate with PT to make the needed progress. She is being transferred to [facility] today by ambulance. SHe will be continued on her maintenance meds from home and will be allowed to use her own home meds to help with some of the cost. Will ask for PT/OT eval as well. Objective Vital signs: Temp Pulse Resp BP Pulse Ox 97.9 F 68 18 108/78 98 02/12/18 08:00 02/12/18 08:00 02/12/18 08:00 02/12/18 08:00 02/12/18 08:00 no acute distress Comments: she is awake but does not respond verbally. - *Routine HEENT Exam Head: Present: normocephalic Eye: Present: EOMI, PERRL ENT: Present: mucous membranes dry - *Routine Respiratory Exam Present: CTA bilaterally - *Routine Cardiovascular Exam Present: RRR - *Routine Abdominal Exam Present: soft, normoactive bowel sounds. Absent: tenderness, distended - *Routine Extremities Exam Absent: edema Results Labs on day of discharge: Labs from last 24 hours 02/12/18 02/12/18 06:48 06:48 WBC 11.6 H RBC 3.43 L Hgb 10.0 L Hct 32.3 L MCV 94.2 MCH 29.2 MCHC 30.9 L RDW 14.3 Plt Count 308 MPV 7.1 L Neut % (Auto) 62.2 Lymph % (Auto) 29.9 [place] % (Auto) 5.2 Eos % (Auto) 2.2 Baso % (Auto) 0.5 Neut # (Auto) 7.2 Lymph # (Auto) 3.5 [place] # (Auto) 0.6 Eos # (Auto) 0.3 Baso # (Auto) 0.1 Sodium 143 Potassium 3.5 Chloride 111 H Carbon Dioxide 22 Anion Gap 13.5 BUN 14 Creatinine 0.98 Estimated Creat Clear 36 Estimated GFR 54 L Est GFR ( Amer) 65 Glucose 96 Calcium 8.7 Total Bilirubin 0.2 AST 20 ALT 13 Alkaline Phosphatase 89 Total Protein 6.5 Albumin 2.4 L Globulin 4.1 H Albumin/Globulin Ratio 0.6 L DS: Diagnosis - Discharge Diagnosis (1) Pseudomonas urinary tract infection Status: Acute (2) Altered mental status Status: Acute (3) Dehydration Status: Acute (4) Dementia Status: Acute (5) Weakness Status: Acute (6) Hypertension Status: Chronic (7) Hx of breast cancer Status: Acute (8) Hx of non-Hodgkin's lymphoma Status: Acute Discharge Plan - Patient Discharge Instructions ACTIVITY: Continue current activity, Ambulate as tolerated, Up with assistance DIET: regular diet Additional Instructions: 1) PT and OT evaluation 2) May use own home medications - Follow up Plan Follow up with: Austin Rivera MD [Primary Care Provider] - (at [facility]) Disposition: Xfer [facility] Home Medications: Home Medications Medication Instructions Recorded Confirmed Type Dorzolamide HCl [Trusopt] 1 drop OP BID 11/19/17 02/08/18 History Escitalopram Oxalate [Lexapro] 5 mg PO HS 11/19/17 02/07/18 History Ferrous Sulfate [Ferrous Sulfate 325 mg PO BID 11/19/17 02/08/18 History 325mg Tablet] Fluticasone Propionate [Flonase 1 spr NS BID 11/19/17 02/07/18 History 50mcg nasal spray 16gm] Furosemide [Furosemide 20mg Tab] 20 mg PO DIRECTED 11/19/17 02/07/18 History Losartan/Hydrochlorothiazide 12.5 - 100 mg PO DAILY 11/19/17 02/08/18 History [Hyzaar 100-12.5 Tablet] Lovastatin 40 mg PO HS 11/19/17 02/07/18 History Nitrofurantoin Monohyd/M-Cryst 100 mg PO HS 11/19/17 02/08/18 History [Macrobid 100 mg Capsule] Omeprazole [Omeprazole 40mg 40 mg PO DAILY 11/19/17 02/07/18 History Capsule] Pnv with Ca,No.72/Iron/FA [Preplus 1 each PO DAILY 11/19/17 02/07/18 History Ca-Fe 27 mg-FA 1 mg Tb] Potassium Chloride [K-Tab ER 10 10 meq PO DAILY 11/19/17 02/07/18 History mEq] Rivaroxaban [Xarelto 15mg tablet] 15 mg PO HS 11/19/17 02/07/18 History Prescriptions/Medication Reconciliation: New Acetaminophen [Acetaminophen 325mg tab] 650 mg PO Q4HP PRN tablet PRN Reason: As Needed For Fever Or Pain Non Formulary [Pt's Own Medication] 1 each TOPICAL BID each Non Formulary [Pt's Own Medication] 1 each PO HS each levoFLOXacin [Levaquin 250mg tab] 250 mg PO DAILY #7 tab Cefepime HCl [Maxipime 1gm Vial] 1 gm IV Q12H #14 vial Continue Potassium Chloride [K-Tab ER 10 mEq] 10 meq PO DAILY Furosemide [Furosemide 20mg Tab] 20 mg PO DIRECTED Ferrous Sulfate [Ferrous Sulfate 325mg Tablet] 325 mg PO BID Rivaroxaban [Xarelto 15mg tablet] 15 mg PO HS Pnv with Ca,No.72/Iron/FA [Preplus Ca-Fe 27 mg-FA 1 mg Tb] 1 each PO DAILY Nitrofurantoin Monohyd/M-Cryst [Macrobid 100 mg Capsule] 100 mg PO HS Lovastatin 40 mg PO HS Losartan/Hydrochlorothiazide [Hyzaar 100-12.5 Tablet] 12.5 - 100 mg PO DAILY Escitalopram Oxalate [Lexapro] 5 mg PO HS Dorzolamide HCl [Trusopt] 1 drop OP BID Omeprazole [Omeprazole 40mg Capsule] 40 mg PO DAILY Fluticasone Propionate [Flonase 50mcg nasal spray 16gm] 1 spr NS BID
== END 2018-02-12 16:45 ==
LOC: ER 10:04 → 2ND 10:04
PROVIDERS: ADMIT Family Medicine; ATTEND Family Medicine